=== PATIENT | male | born 1980 | race Caucasian/White ===

== ENCOUNTER 2019-02-07 19:07 | Emergency (ER) | payer BC ==
[2019-02-07] MEDS ORDERED: LIDOCAINE-MPF 2% 7 ML in SODIUM CHLORIDE 0.9% 50 ML IV STA (19:28)
[2019-02-07] MEDS ORDERED: KETOROLAC 30 MG/ML VIAL IVP STA (19:28)
[2019-02-07 19:39] LABS: BASOPHILS # (AUTO) 0.1 10^3/uL (0.0-0.1); BASOPHILS % (AUTO) 1.1 %; EOSINOPHILS # (AUTO) 0.1 10^3/uL (0.0-0.7); EOSINOPHILS % (AUTO) 0.6 %; HGB - HEMOGLOBIN 15.1 g/dL (14.0-18.0); LYMPHOCYTES # (AUTO) 3.4 10^3/uL (1.5-3.5); LYMPHOCYTES % (AUTO) 34.9 %; MEAN CORPUSCULAR HEMOGLOBIN 29.7 pg (27.0-31.0); MEAN CORPUSCULAR VOLUME 87.2 fL (80.0-94.0); MEAN PLATELET VOLUME 7.9 fL (7.4-11.4); MONOCYTES # (AUTO) 0.8 10^3/uL (0.0-1.0); MONOCYTES % (AUTO) 7.9 %; NEUTROPHILS # (AUTO) 5.5 10^3/uL (1.5-6.6); NEUTROPHILS % (AUTO) 55.5 %; PLT - PLATELET COUNT 254 10^3/uL (130-450); RED BLOOD COUNT 5.09 10^6/uL (4.70-6.10); RED CELL DISTRIBUTION WIDTH 13.6 % (12.0-15.0); WHITE BLOOD COUNT 9.8 x10^3/uL (4.8-10.8)
[2019-02-07 20:02] LABS: ALBUMIN 4.6 g/dL (3.2-5.5); ALBUMIN/GLOBULIN RATIO 1.3 (1.0-2.2); BILIRUBIN,TOTAL 0.8 mg/dL (0.2-1.0); CALCIUM 9.2 mg/dL (8.5-10.3); TOTAL PROTEIN 8.1 g/dL (6.7-8.2)
[2019-02-07 20:15] LABS: BILIRUBIN,URINE NEGATIVE (NEGATIVE); GLUCOSE, URINE (UA) NEGATIVE (NEGATIVE); KETONES,URINE (UA) NEGATIVE (NEGATIVE); LEUKOCYTE ESTERASE, URINE NEGATIVE (NEGATIVE); NITRITE,URINE NEGATIVE (NEGATIVE); OCCULT BLOOD,URINE LARGE (NEGATIVE); PH,URINE 5.5 PH (5.0-7.5); PROTEIN,URINE TRACE mg/dL (NEGATIVE); UROBILINOGEN,URINE 0.2 (NORMAL) E.U./dL (NORMAL)
[2019-02-07 20:16] LABS: CLARITY,URINE CLOUDY (CLEAR)
[2019-02-07] MEDS ORDERED: HYDROmorphone 1 MG/ML CARPUJECT IVP STA ×2 (20:20→21:18)
[2019-02-07 20:33] LABS: BACTERIA,URINE Few /HPF (None Seen); RBC,URINE TNTC /HPF (0-5); SQUAMOUS EPITHELIAL CELL,UR NONE SEEN (<= Few)
--- NOTE | 2019-02-07 21:02 | CT Report ---
Reason: R flank pain Procedure Date: 02/07/2019 Accession Number: [id number] / [id number] Procedure: CT - Abdomen/Pelvis WO CPT Code: FULL RESULT: EXAM: CT ABDOMEN AND PELVIS (CT KUB) EXAM DATE: 02/07/2019 08:26 PM. CLINICAL HISTORY: Right flank pain and back pain for a week. Blood in urine. COMPARISONS: None. TECHNIQUE: Routine axial helical CT imaging was performed through the abdomen and pelvis without IV contrast. Reconstructions: Coronal and sagittal. In accordance with CT protocol optimization, one or more of the following dose reduction techniques were utilized for this exam: automated exposure control, adjustment of mA and/or KV based on patient size, or use of iterative reconstructive technique. FINDINGS: Lung Bases: Unremarkable. Right Kidney/Ureter: Nonobstructing 3 x 4 x 5 mm calyceal stone. No ureteral stones, hydronephrosis, or hydroureter. No perinephric fat stranding. Left Kidney/Ureter: No stones, hydronephrosis, or hydroureter. No perinephric fat stranding. Other Solid Organs: Noncontrast images of the solid organs are grossly unremarkable. Gallbladder/Bile Ducts: Unremarkable. Peritoneal Cavity: No free fluid, free air or zuleyma adenopathy. Bowel is grossly unremarkable. Pelvic Organs: No bladder stones or wall thickening. Noncontrast images of the visualized pelvic organs are unremarkable. Vasculature: Unremarkable. Other: Small fat-containing umbilical hernia noted. IMPRESSION: Nonobstructing right 3 x 4 x 5 mm calyceal stone, otherwise unremarkable kidneys and ureters. RADIA
--- NOTE | 2019-02-07 21:08 | ED Physician Documentation ---
PD HPI ABD PAIN - Stated complaint Stated Complaint: BACK PX/POSS KIDNEY STONE - Chief complaint Chief Complaint: Abd Pain - History obtained from History obtained from: Patient, Family - History of Present Illness Timing - onset: Today Timing - duration: Days (1) Timing - details: Abrupt onset Pain level max: 10 Pain level now: 10 Quality: Aching, Pain Location: Other (L flank) Radiation: Other (non-radiating) Improved by: Other (nothing) Worsened by: Other (nothing) Associated symptoms: No: Fever, Nausea, Vomiting, Hematemesis, Diarrhea, Constipation, Melena, Hematochezia Similar symptoms before: Has not had sx before Recently seen: Not recently seen - Additional information Additional information: states has passed to kidney stones this week Review of Systems Constitutional: denies: Fever, Chills Cardiac: denies: Chest pain / pressure Respiratory: denies: Cough GI: denies: Nausea, Vomiting, Diarrhea : reports: Hematuria. denies: Dysuria Skin: denies: Rash Musculoskeletal: reports: Back pain (L flank). denies: Neck pain Neurologic: denies: Headache PD PAST MEDICAL HISTORY - Past Medical History Past Medical History: No - Past Surgical History Past Surgical History: No - Present Medications Home Medications: Ambulatory Orders Medication Instructions Recorded Confirmed Ibuprofen [Motrin] 800 mg PO Q8H PRN #30 tablet 02/07/19 Ondansetron Odt [Zofran] 4 mg TL Q6H PRN #10 tablet 02/07/19 Oxycodone HCl/Acetaminophen 1 - 2 each PO Q6H PRN #14 tablet 02/07/19 [Percocet 5-325 mg Tablet] - Allergies Allergies/Adverse Reactions: Allergies Allergy/AdvReac Type Severity Reaction Status Date / Time codeine Allergy Itching Verified 02/07/19 19:13 - Living Situation Living Situation: reports: With family Living Arrangement: reports: At home - Social History Does the pt have substance abuse?: No - Family History Family history: reports: Non contributory PD ED PE NORMAL - Vitals Vital signs reviewed: Yes - General General: Alert and oriented X 3, Well developed/nourished, Other (appears in pain) - HEENT HEENT: Moist mucous membranes - Neck Neck: Supple, no meningeal sign - Cardiac Cardiac: RRR, Strong equal pulses - Respiratory Respiratory: No respiratory distress, Clear bilaterally - Abdomen Abdomen: Soft, Non tender, Non distended - Back Back: No CVA TTP, No spinal TTP - Derm Derm: Warm and dry - Neuro Neuro: Alert and oriented X 3 - Psych Psych: Normal mood, Normal affect Results - Vitals Vitals: Vital Signs - 24 hr 02/07/19 02/07/19 02/07/19 19:10 19:25 19:40 Temperature 36.5 C Heart Rate 86 75 Respiratory 18 17 18 Rate Blood Pressure 167/104 H 148/95 H O2 Saturation 98 98 02/07/19 02/07/19 20:55 21:40 Temperature Heart Rate 60 68 Respiratory 16 Rate Blood Pressure 147/81 H 136/72 H O2 Saturation 96 96 Oxygen O2 Source Room air - Labs Labs: Laboratory Tests 02/07/19 02/07/19 02/07/19 19:17 19:30 19:30 WBC 9.8 RBC 5.09 Hgb 15.1 Hct 44.4 MCV 87.2 MCH 29.7 MCHC 34.0 RDW 13.6 Plt Count 254 MPV 7.9 Neut # (Auto) 5.5 Lymph # (Auto) 3.4 [place] # (Auto) 0.8 Eos # (Auto) 0.1 Baso # (Auto) 0.1 Absolute Nucleated RBC 0.01 Nucleated RBC % 0.1 Sodium 138 Potassium 4.4 Chloride 104 Carbon Dioxide 25 Anion Gap 9.0 BUN 19 Creatinine 1.0 Estimated GFR (MDRD) 83 L Glucose 102 H Calcium 9.2 Total Bilirubin 0.8 AST 39 ALT 51 Alkaline Phosphatase 59 Total Protein 8.1 Albumin 4.6 Globulin 3.5 Albumin/Globulin Ratio 1.3 Lipase 36 Urine Color BROWN Urine Clarity CLOUDY Urine pH 5.5 Ur Specific [place] 1.025 Urine Protein TRACE Urine Glucose (UA) NEGATIVE Urine Ketones NEGATIVE Urine Occult Blood LARGE H Urine Nitrite NEGATIVE Urine Bilirubin NEGATIVE Urine Urobilinogen 0.2 (NORMAL) Ur Leukocyte Esterase NEGATIVE Urine RBC TNTC H Urine WBC 0-3 Ur Squamous Epith Cells NONE SEEN Urine Bacteria Few Ur Microscopic Review INDICATED Urine Culture Comments NOT INDICATED - Rads (name of study) Ct abd/pelvis Radiology: Prelim report reviewed, EMP read contemporaneously, See rad report (Nonobstructing right 3 x 4 x 5 mm calyceal stone, otherwise unremarkable kidneys and ureters. ) PD MEDICAL DECISION MAKING - ED course Complexity details: reviewed results, re-evaluated patient, considered differential, d/w patient, d/w family ED course: 38-year-old male with history and physical consistent with ureteral stone. We do not see a left-sided stone however on CT. Possible that is a small stone that was volume averaged out or possible the stone recently passed. Pain is well controlled. There is hematuria. We will have him follow-up closely with his doctor for further care. Patient and family counseled regarding signs and symptoms for which I believe and urgent re-evaluation would be necessary. Patient with good understanding of and agreement to plan and is comfortable going home at this time This document was made in part using voice recognition software. While efforts are made to proofread this document, sound alike and grammatical errors may occur. Departure - Departure Disposition: 01 Home, Self Care Clinical Impression: Kidney stone Condition: Good Instructions: ED Stone Renal W Colic Follow-Up: your,doctor in 3 days [Other] Prescriptions: Ibuprofen [Motrin] 800 mg PO Q8H PRN #30 tablet PRN Reason: PAIN &/OR FEVER Ondansetron Odt [Zofran] 4 mg TL Q6H PRN #10 tablet PRN Reason: Nausea / Vomiting Oxycodone HCl/Acetaminophen [Percocet 5-325 mg Tablet] 1 - 2 each PO Q6H PRN #14 tablet PRN Reason: pain Comments: Return if you worsen. Use the medications as needed. Do not drink alcohol or drive while on narcotic pain medicine. Note that many narcotic pain relievers also contain tylenol/acetaminophen. Please ensure that your total dose of acetaminophen from all sources does not exceed 3 grams (3000mg) per day. You may constipated on this medication, take a stool softener such as "Colace" twice a day while you are on it. Also recommend a pvte-xoe-zgyrvul laxative such as senna or MiraLAX any day that you do not have a bowel movement. If you received narcotic pain medication in the emergency department, do not drive or operate machinery for the next 24 hours. Forms: Activity restrictions Discharge Date/Time: 02/07/19 22:03
[2019-02-07] MEDS ORDERED: ONDANSETRON ODT 4 MG Prepack 2 TL PRN (21:18)
[2019-02-07] MEDS ORDERED: oxyCODONE 5 MG TABLET PO STA (21:18)
[2019-02-07] MEDS ORDERED: oxyCODONE/ACET 5/325 Prepack 4 PO STA (21:18)
[2019-02-07 21:41] VITALS: BP 136/72
== END 2019-02-07 22:03 | disposition home or self-care (01) ==
LOC: ED 19:07
DX: N20.0 Calculus of kidney (principal)
CPT/HCPCS: 36415; 74176; 80053; 81001; 83690; 85025; 96365; 96375; 96376; 99283; 99284; A9270; J1170; J7040; 81003; 87086

== ENCOUNTER 2019-02-18 17:13 | Emergency (ER) | payer BC ==
[2019-02-18 18:55] LABS: BILIRUBIN,URINE NEGATIVE (NEGATIVE); GLUCOSE, URINE (UA) NEGATIVE (NEGATIVE); KETONES,URINE (UA) NEGATIVE (NEGATIVE); LEUKOCYTE ESTERASE, URINE NEGATIVE (NEGATIVE); NITRITE,URINE NEGATIVE (NEGATIVE); OCCULT BLOOD,URINE TRACE-LYSE (NEGATIVE); PROTEIN,URINE NEGATIVE (NEGATIVE); UROBILINOGEN,URINE 0.2 (NORMAL) E.U./dL (NORMAL)
[2019-02-18 19:02] LABS: CLARITY,URINE CLEAR (CLEAR)
--- NOTE | 2019-02-18 19:03 | ED Physician Documentation ---
History of Present Illness - Stated complaint Stated Complaint: SIDE PX - Chief complaint Chief Complaint: General - History obtained from History obtained from: Patient - History of Present Illness Timing: Yesterday Pain level now: 6 Radiates to: Right lower abdomen - Additonal information Additional information: This is a 38-year-old who presents with complaints he is having pain on his right flank since wrapping around into the suprapubic area since last night. He was seen here on the had a CAT scan that showed a kidney stone and was prescribed hydrocodone 01/22/2025. He was trying to stretch them out Until his follow-up appointment with the physician this coming Friday but he ran out yesterday and last night was standing cooking dinner when the pain started to get more severe. He was did not take any medication for it today. He said he is been trying to drink a lot of water. He is still urinating and but he does not think he is passed the stone. He feels feverish with cold flashes. Is been nauseous but no vomiting. He does not have a urologist. He does a very physical job. Review of Systems Constitutional: denies: Fever GI: reports: Abdominal Pain, Nausea. denies: Vomiting : reports: Hematuria Musculoskeletal: reports: Back pain PD PAST MEDICAL HISTORY - Past Surgical History Past Surgical History: No - Present Medications Home Medications: Ambulatory Orders Medication Instructions Recorded Confirmed Hydrocodone/Acetaminophen 1 - 2 each PO Q6H PRN #10 tablet 02/18/19 [Hydrocodon-Acetaminophen 5-325] Omeprazole 20 mg ORAL DAILY 02/18/19 02/18/19 Tamsulosin [Flomax] 0.4 mg PO DAILY #10 capsule 02/18/19 - Allergies Allergies/Adverse Reactions: Allergies Allergy/AdvReac Type Severity Reaction Status Date / Time codeine Allergy Itching Verified 02/18/19 17:21 - Social History Does the pt have substance abuse?: No PD ED PE NORMAL - Vitals Vital signs reviewed: Yes - General General: Alert and oriented X 3, No acute distress, Well developed/nourished - HEENT HEENT: Atraumatic - Cardiac Cardiac: RRR, No murmur - Respiratory Respiratory: No respiratory distress, Clear bilaterally - Abdomen Abdomen: Normal bowel sounds, Soft, Other (Tender in the right abdomen.) - Back Back: Other (There is right costovertebral angle tenderness.) - Derm Derm: No rash - Neuro Neuro: Alert and oriented X 3, No motor deficit, No sensory deficit, Normal speech - Psych Psych: Normal mood, Normal affect Results - Vitals Vitals: Vital Signs - 24 hr 02/18/19 02/18/19 02/18/19 17:17 20:44 22:26 Temperature 37 C Heart Rate 84 80 62 Respiratory 16 17 16 Rate Blood Pressure 148/80 H 138/83 H 133/62 H O2 Saturation 98 98 98 Oxygen O2 Source Room air - Labs Labs: Laboratory Tests 02/18/19 02/18/19 02/18/19 17:30 19:55 20:38 WBC 8.3 RBC 4.96 Hgb 14.5 Hct 42.7 MCV 86.1 MCH 29.3 MCHC 34.0 RDW 13.3 Plt Count 263 MPV 7.7 Neut # (Auto) 3.9 Lymph # (Auto) 3.3 [place] # (Auto) 0.9 Eos # (Auto) 0.1 Baso # (Auto) 0.1 Absolute Nucleated RBC 0.02 Nucleated RBC % 0.2 Sodium 138 Potassium 3.6 Chloride 105 Carbon Dioxide 27 Anion Gap 6.0 BUN 14 Creatinine 0.9 Estimated GFR (MDRD) 94 Glucose 69 L Calcium 8.4 L Urine Color YELLOW Urine Clarity CLEAR Urine pH 6.0 Ur Specific [place] <=1.005 Urine Protein NEGATIVE Urine Glucose (UA) NEGATIVE Urine Ketones NEGATIVE Urine Occult Blood TRACE-LYSE Urine Nitrite NEGATIVE Urine Bilirubin NEGATIVE Urine Urobilinogen 0.2 (NORMAL) Ur Leukocyte Esterase NEGATIVE Ur Microscopic Review NOT INDICATED Urine Culture Comments NOT INDICATED PD MEDICAL DECISION MAKING - ED course ED course: Patient had an IV started was given [id number] mg IV got no relief from the pain given Dilaudid 1 mg. I reviewed his the and he had a 3 x 4 x 5 stone in the right kidney on that date. BUN and creatinine are normal now and no elevation of the blood cell count. Ultrasound was obtained today to rule out hydronephrosis. There is no evident hydro-process and the stone was seen still in the kidney. It is possible he passed a small piece of it. Is good to be sent home with a urine strainer. He said his pain is better after Dilaudid. Given a prescription for 6 hydrocodone tablets and also referral to urology if he can get into see them sooner since the stone has not passed in 2 weeks now and he still having pain. Departure - Departure Disposition: 01 Home, Self Care Clinical Impression: Kidney stone Condition: Good Instructions: ED Strainer Urine, ED Stone Renal W Colic Follow-Up: Brant Shultz DO [Physician No Access] - Prescriptions: Hydrocodone/Acetaminophen [Hydrocodon-Acetaminophen 5-325] 1 - 2 each PO Q6H PRN #10 tablet PRN Reason: pain Tamsulosin [Flomax] 0.4 mg PO DAILY #10 capsule Comments: Strain your urine and save the stone if passed. Take ibuprofen 3 to 4 tablets [id number] every 8 hours with food as needed for pain. Take Flomax daily. Take the hydrocodone if needed for pain but do not drive or operate machinery or take additional Tylenol if you are taking that medication. Follow-up with your primary care provider as you have scheduled next Friday or I have given you a phone number for the urology clinic you can contact them to see if they can see you in follow-up sooner.Return if you have increasing pain, you are vomiting and cannot keep anything down, you develop fever or other problems arise. Forms: Activity restrictions
[2019-02-18] MEDS ORDERED: SODIUM CHLORIDE 0.9% 1,000 ML IV ONE (19:40)
[2019-02-18] MEDS ORDERED: KETOROLAC 30 MG/ML VIAL IVP STA (19:40)
[2019-02-18] MEDS ORDERED: TAMSULOSIN 0.4 MG CAPSULE PO STA (19:41)
[2019-02-18 20:05] LABS: BASOPHILS # (AUTO) 0.1 10^3/uL (0.0-0.1); BASOPHILS % (AUTO) 1.1 %; EOSINOPHILS # (AUTO) 0.1 10^3/uL (0.0-0.7); EOSINOPHILS % (AUTO) 0.6 %; HGB - HEMOGLOBIN 14.5 g/dL (14.0-18.0); LYMPHOCYTES # (AUTO) 3.3 10^3/uL (1.5-3.5); MEAN CORPUSCULAR HEMOGLOBIN 29.3 pg (27.0-31.0); MEAN CORPUSCULAR VOLUME 86.1 fL (80.0-94.0); MEAN PLATELET VOLUME 7.7 fL (7.4-11.4); MONOCYTES # (AUTO) 0.9 10^3/uL (0.0-1.0); MONOCYTES % (AUTO) 10.8 %; NEUTROPHILS # (AUTO) 3.9 10^3/uL (1.5-6.6); NEUTROPHILS % (AUTO) 47.5 %; PLT - PLATELET COUNT 263 10^3/uL (130-450); RED BLOOD COUNT 4.96 10^6/uL (4.70-6.10); RED CELL DISTRIBUTION WIDTH 13.3 % (12.0-15.0); WHITE BLOOD COUNT 8.3 x10^3/uL (4.8-10.8)
[2019-02-18 20:51] LABS: CALCIUM 8.4 mg/dL (8.5-10.3); CREATININE 0.9 mg/dL (0.6-1.2)
[2019-02-18] MEDS ORDERED: HYDROmorphone 1 MG/ML CARPUJECT IVP STA (21:02)
[2019-02-18] MEDS ORDERED: ONDANSETRON 4 MG/2 ML VIAL IVP STA (21:02)
--- NOTE | 2019-02-18 22:36 | Ultrasound Report ---
Reason: R flank pain, known kidney stone, r/o hydronephros Procedure Date: 02/18/2019 Accession Number: [id number] / [id number] Procedure: US - Retroperitoneal Limited CPT Code: FULL RESULT: EXAM: RENAL ULTRASOUND EXAM DATE: 02/18/2019 10:05 PM. CLINICAL HISTORY: R flank pain, known kidney stone, r/o hydronephrosis. COMPARISON: ABDOMEN/PELVIS W/O 02/07/2019 8:09 PM. TECHNIQUE: Real-time scanning was performed with static images obtained. FINDINGS: Right Kidney: 12.1 x 5.2 x 6.3 cm. Possible nonobstructing 6 mm renal stone. Small cyst measuring 8 x 6 x 7 mm. No hydronephrosis seen. Left Kidney: Not imaged. Bladder: Right ureteral jet was seen. Relatively decompressed urinary bladder. Other: None. IMPRESSION: 1. Possible nonobstructing 6 mm right renal stone. 2. No hydronephrosis seen. 3. Right ureteral jet was seen in the bladder. RADIA
[2019-02-18 23:27] VITALS: BP 139/93
== END 2019-02-18 23:45 | disposition home or self-care (01) ==
LOC: ED 17:13
DX: N20.0 Calculus of kidney (principal)
CPT/HCPCS: 36415; 76775; 80048; 81003; 85025; 96361; 96374; 96375; 99283; 99284; A9270; J1170; 81001; 87086